=== PATIENT | male | born 1980 | race Caucasian/White ===

== ENCOUNTER 2019-06-08 03:15 | Emergency (ER) | payer OTHER ==
[~2019-06-08] VITALS: Ht 167.6 cm; Wt 115.7 kg
[2019-06-08 03:20] VITALS: Ht 167.6 cm; Wt 115.7 kg
[2019-06-08 04:16] VITALS: BP 141/101
== END 2019-06-08 04:16 | disposition home or self-care (01) ==
LOC: ED 03:15
DX: S86.012A Strain of left Achilles tendon, initial encounter (principal); X58.XXXA Exposure to other specified factors, initial encounter; Y93.02 Activity, running; Y92.89 Other specified places as the place of occurrence of the external cause; Y99.0 Civilian activity done for income or pay